=== PATIENT | female | born 1975 | race Two or more races ===

== ENCOUNTER → 2016-11-28 | Outpatient (CLI) | payer BC ==
[~2016-11-28] MED LIST: DULO60CA55 PO; HYDR-3144 PO
[2016-11-28 15:19] LABS: HEMOGLOBIN 14.3 g/dL (11.7-16.4)
[2016-11-28 15:27] LABS: BLOOD UREA NITROGEN 8 mg/dL (7-18)
== END | disposition home or self-care (01) ==
LOC: STAR 13:46
PROVIDERS: ATTEND Neurological Surgery
DX: Z01.818 Encounter for other preprocedural examination (principal); M54.5 Low back pain; M41.86 Other forms of scoliosis, lumbar region
CPT/HCPCS: 36415; 71020; 72110; 80048; 81003; 85025; 85610; 85730; 93005

== ENCOUNTER → 2017-04-13 | Outpatient (CLI) | payer BC ==
[~2017-04-13] MED LIST changes: +BUSP5TAB2 PO; +DIAZ5TAB4 PO
[2017-04-13 13:56] LABS: HEMATOCRIT 41.9 % (34.6-47.8); HEMOGLOBIN 14.1 g/dL (11.7-16.4); WHITE BLOOD COUNT 5.7 x10^3/uL (3.4-10)
== END | disposition home or self-care (01) ==
LOC: STAR 12:18
PROVIDERS: ATTEND Obstetrics & Gynecology
DX: Z01.818 Encounter for other preprocedural examination (principal)
CPT/HCPCS: 36415; 84703; 85025

== ENCOUNTER 2017-06-30 10:41 | Observation (INO) | payer BC ==
[~2017-06-30] VITALS: Ht 162.6 cm; Wt 92.3 kg
[~2017-06-30 10:41] MED LIST changes: +CYCL-259 PO; +DICL75TA2 PO; -HYDR-3144 PO; +HYDR-3245 PO
[2017-06-30 11:08] LABS: HCG UR LOT HCG7030192
[2017-06-30] MEDS ORDERED: LACTATED RINGERS 1,000 ML IV SCH (11:10)
[2017-06-30 11:13] LABS: HCG UR OBC PASS
[2017-06-30] MEDS ORDERED: LIDOCAINE 1%, 2ML ONE (11:14)
[2017-06-30] MEDS ORDERED: BUPIVACAINE/PF 0.25% ONE (11:24)
[2017-06-30] MEDS ORDERED: EPINEPHRINE 1 MG/ML, 1ML ONE (11:25)
[2017-06-30] MEDS ORDERED: FLUORESCEIN SODIUM 500 MG/5 ML ONE (11:25)
[2017-06-30] MEDS ORDERED: LIDOCAINE 1%, 2ML SQ PRN (11:30)
[2017-06-30] MEDS ORDERED: ONDANSETRON 2MG/ML, 2ML ONE (12:09)
[2017-06-30] MEDS ORDERED: MIDAZOLAM 1 MG/ML, 2ML ONE (12:09)
[2017-06-30] MEDS ORDERED: NEOSTIGMINE 1 MG/ML, 10ML ONE (12:09)
[2017-06-30] MEDS ORDERED: GLYCOPYRROLATE 0.2MG/1ML, 5ML ONE (12:09)
[2017-06-30] MEDS ORDERED: ROCURONIUM 10 MG/ML ONE (12:09)
[2017-06-30] MEDS ORDERED: PROPOFOL 10 MG/ML, 20ML ONE (12:09)
[2017-06-30] MEDS ORDERED: SUCCINYLCHOLINE 20 MG/ML, 10ML ONE (12:09)
[2017-06-30] MEDS ORDERED: FENTANYL PF 100 MCG/2ML ONE ×4 (12:09→15:26)
[2017-06-30] MEDS ORDERED: LIDOCAINE GEL 2%, 5ML ONE (12:09)
[2017-06-30] MEDS ORDERED: CEFAZOLIN 1,000 MG ONE (12:09)
[2017-06-30] MEDS ORDERED: DEXAMETHASONE 4 MG/ML, 1ML ONE (12:09)
[2017-06-30] MEDS ORDERED: KETAMINE 10 MG/ML, 20ML ONE (12:11)
[2017-06-30] MEDS ORDERED: LIDOCAINE-MPF 2% ,5ML ONE (12:12)
[2017-06-30] MEDS ORDERED: KETOROLAC 30 MG/1 ML ONE (13:23)
[2017-06-30] MEDS ORDERED: ONDANSETRON 2MG/ML, 2ML IVPush PRN (13:30)
[2017-06-30] MEDS ORDERED: hydrALAzine 20 MG/ML, 1ML IV PRN (13:30)
[2017-06-30] MEDS ORDERED: DIAZEPAM 5 MG/ML, 2ML IVPush PRN (13:30)
[2017-06-30] MEDS ORDERED: ALBUTEROL/IPRATROPIUM 2.5MG/0.5MG, 3 ML NPPB PRN (13:30)
[2017-06-30] MEDS ORDERED: MEPERIDINE/PF 25MG/0.5ML IVPush PRN (13:30)
[2017-06-30] MEDS ORDERED: PROMETHAZINE 25 MG/ML, 1ML IV PRN (13:30)
[2017-06-30] MEDS ORDERED: ACETAMINOPHEN 325 MG TABLET PO PRN ×2 (13:30→18:30)
[2017-06-30] MEDS ORDERED: LABETALOL 5MG/ML, 20ML IV PRN (13:30)
[2017-06-30] MEDS ORDERED: MIDAZOLAM 1 MG/ML, 2ML IV PRN (13:30)
[2017-06-30] MEDS ORDERED: LORazepam 2 MG/ML, 1ML IVPush PRN (13:30)
[2017-06-30] MEDS ORDERED: HYDROmorphone 2 MG/ML, 1ML ONE (14:25)
[2017-06-30] MEDS ORDERED: OXYcodone 5 MG/5 ML ORAL.SOL UDC ONE ×2 (15:10→15:26)
[2017-06-30] MEDS ORDERED: ACETAMINOPHEN 650 MG/20.3 ML UDC ONE (15:10)
[2017-06-30] MEDS: FENTANYL PF 100 MCG/2ML IV PRN ×4 (15:12→15:39)
[2017-06-30] MEDS: OXYcodone 5 MG/5 ML ORAL.SOL UDC PO PRN ×2 (15:14→15:30)
[2017-06-30] MEDS ORDERED: MEPERIDINE/PF 25MG/0.5ML ONE (15:44)
[2017-06-30] MEDS ORDERED: HYDROmorphone 1 MG/ML, 1ML ONE (15:44)
[2017-06-30] MEDS ORDERED: PHENYLEPHRINE 10 MG/ML ONE (15:45)
[2017-06-30] MEDS: HYDROmorphone 1 MG/ML, 1ML IV PRN ×2 (16:05→16:17)
[2017-06-30] MEDS ORDERED: ONDANSETRON ODT 4 MG PO PRN (17:30)
[2017-06-30] MEDS ORDERED: MORPHINE SULFATE 4 MG/ML, 1ML IVPush PRN (17:30)
[2017-06-30] MEDS ORDERED: ZOLPIDEM 5MG TABLET PO PRN (17:30)
[2017-06-30] MEDS: DICLOFENAC MC SCH (18:30)
[2017-06-30] MEDS: IBUPROFEN MC SCH (18:30)
[2017-06-30] MEDS ORDERED: ACETAMINOPHEN 650 MG SUPP PR PRN (18:30)
[2017-06-30 18:58] LABS: HEMATOCRIT 39.5 % (34.6-47.8); HEMOGLOBIN 13.6 g/dL (11.7-16.4); WHITE BLOOD COUNT 12.9 x10^3/uL (3.4-10)
[2017-06-30 19:28] VITALS: BP 126/79
[2017-06-30] MEDS: OXYcodone/APAP 5/325MG TABLET PO PRN ×2 (19:50→23:58)
[2017-06-30] MEDS ORDERED: SENNA/DOCUSATE TABLET PO SCH (21:00)
[2017-06-30] MEDS: SIMETHICONE 80 MG CHEW TAB PO SCH (21:46)
[2017-06-30] MEDS: CYCLOBENZAPRINE 10 MG TABLET PO SCH (21:47)
[2017-06-30] MEDS: BUSPIRONE 5 MG TABLET PO SCH (21:47)
[2017-06-30] MEDS: IBUPROFEN 600 MG TABLET PO SCH (22:57)
[2017-07-01 00:07] VITALS: BP 124/75
[2017-07-01] MEDS: DICLOFENAC MC SCH ×2 (02:30→10:30)
[2017-07-01] MEDS: IBUPROFEN MC SCH ×2 (02:30→10:30)
[2017-07-01] MEDS: OXYcodone/APAP 5/325MG TABLET PO PRN ×4 (04:25→17:05)
[2017-07-01 05:25] VITALS: BP 119/77
[2017-07-01 05:36] LABS: HEMATOCRIT 36.5 % (34.6-47.8); HEMOGLOBIN 12.7 g/dL (11.7-16.4); WHITE BLOOD COUNT 9.8 x10^3/uL (3.4-10)
[2017-07-01] MEDS: IBUPROFEN 600 MG TABLET PO SCH ×4 (06:34→17:05)
[2017-07-01 06:39] VITALS: BP 116/75
[2017-07-01] MEDS: BUSPIRONE 5 MG TABLET PO SCH (08:27)
[2017-07-01] MEDS: CYCLOBENZAPRINE 10 MG TABLET PO SCH ×2 (08:28→16:04)
[2017-07-01] MEDS: SIMETHICONE 80 MG CHEW TAB PO SCH ×2 (08:28→16:04)
[2017-07-01] MEDS ORDERED: DULOXETINE 30 MG CAPSULE.DR PO SCH (09:00)
[2017-07-01 13:40] VITALS: BP 116/76
[2017-07-01] MEDS ORDERED: FLU VACC QS2017-18 (36MOS+) UP/PF 0.5 ML IM-VACC ONE ×2 (16:30→17:00)
== END 2017-07-01 17:30 | disposition home or self-care (01) ==
LOC: OUT 10:41 → ORIP 17:19 → INTOOBSV 17:19 → 4NOR 18:06
PROVIDERS: ADMIT Obstetrics & Gynecology; ATTEND Obstetrics & Gynecology
DX: N92.0 Excessive and frequent menstruation with regular cycle (principal); N94.6 Dysmenorrhea, unspecified; N93.9 Abnormal uterine and vaginal bleeding, unspecified; K66.0 Peritoneal adhesions (postprocedural) (postinfection); N80.0 Endometriosis of uterus; N84.0 Polyp of corpus uteri; Z23 Encounter for immunization
CPT/HCPCS: 36415; 58571; 81025; 85025; 88307; 90471; 90686; G0378; J0171; J0330; J0690; J1100; J1170; J1885; J2175; J2250; J2370; J2405; J2704; J2710; J3010; J3490; J7120